=== PATIENT | female | born 1985 | race Caucasian/White ===

== ENCOUNTER 2018-10-28 17:28 | Emergency (ER) | payer OTHER ==
[~2018-10-28] VITALS: Ht 170.2 cm; Wt 68.0 kg
[2018-10-28] MEDS ORDERED: TETANUS/DIPHTHERIA TOX ADULT 0.5 ML SYR IM ONE (18:00)
[2018-10-28] MEDS ORDERED: AUGMENTIN 875-1 EACH PO (18:07)
[2018-10-28 18:40] VITALS: BP 147/80
--- NOTE | 2018-10-28 18:43 | Diagnostic Imaging Report ---
LEFT HAND - 3 Images HISTORY: .Bite over fifth metacarpal, rule out foreign body/fracture, per technologist performing the exam the bite is in between the first and second digits. COMPARISON: None available. FINDINGS: Bones: No acute displaced fracture. No aggressive osseous lesion. Joints: Osseous alignment is within normal limits and the joint spaces are well-maintained. Soft tissues: No radiopaque foreign body. Regional Mild soft tissue swelling. IMPRESSION: 1. Nonspecific soft tissue swelling. 2. No radiopaque foreign body or underlying fracture. Signed by: Dr. Thanh Jang D.O., M.M.M. on 10/28/2018 6:39 PM
== END 2018-10-28 18:49 | disposition home or self-care (01) ==
LOC: ER 17:28
DX: S61.452A Open bite of left hand, initial encounter (principal); W54.0XXA Bitten by dog, initial encounter; Y99.0 Civilian activity done for income or pay; F17.210 Nicotine dependence, cigarettes, uncomplicated
CPT/HCPCS: 90471; 90714; 99283